=== PATIENT | female | born 1975 | race Caucasian/White ===

== ENCOUNTER 2018-05-27 13:48 | Emergency (ER) | payer BC ==
[~2018-05-27] VITALS: Ht 170.2 cm; Wt 95.3 kg
--- NOTE | 2018-05-27 15:35 | PHYS DOC ---
Past Medical History Past Medical History: Asthma, Migraines Additional Past Medical Histor: ULCERATIVE COLITIS,PSORASIS, Past Surgical History: No Surgical History Alcohol Use: None Drug Use: None Adult General Chief Complaint Chief Complaint: HEADACHE HPI HPI Patient is a 42 year old female who presents with headache and fever. Patient reports she has a history of migraine headaches. She reports she usually can control this with Excedrin and rest. She reports this headache started 2 days ago. She did go to urgent care today and received IM Toradol and IM Compazine. She went home and rested, but her symptoms have returned. She reports she started running fever last night. She reports her fever this morning was 101. She reports nausea without vomiting. She denies any visual disturbances. Review of Systems Review of Systems Constitutional: Reports fever Eyes: Denies change in visual acuity, redness, or eye pain [] HENT: Denies nasal congestion or sore throat [] Respiratory: Denies cough or shortness of breath [] Cardiovascular: No chest pain or palpitations GI: Denies abdominal pain, vomiting Musculoskeletal: Patient reports diffuse myalgias and arthralgias. Integument: Denies rash or skin lesions [] Neurologic: Reports fever. Denies focal weakness or sensory changes [] All other systems were reviewed and found to be within normal limits, except as documented in this note. Current Medications Current Medications Current Medications Medications (Trade) Dose Ordered Sig/Filippo Start Time Stop Time Status Last Admin Dose Admin Diphenhydramine HCl (Benadryl) 25 mg 1X ONCE 05/27/18 15:45 05/27/18 15:46 DC 05/27/18 15:53 25 MG Ketorolac Tromethamine (Toradol 30mg Vial) 15 mg 1X ONCE 05/27/18 15:45 05/27/18 15:46 DC 05/27/18 15:53 15 MG Methylprednisolone Sodium Succinate (SOLU-Medrol 125MG VIAL) 125 mg 1X ONCE 05/27/18 15:45 05/27/18 15:46 DC 05/27/18 15:53 125 MG Metoclopramide HCl (Reglan Vial) 10 mg 1X ONCE 05/27/18 15:45 05/27/18 15:46 DC 05/27/18 15:53 10 MG Sodium Chloride 1,000 ml @ 1,000 mls/hr 1X ONCE 05/27/18 16:00 05/27/18 16:59 DC 05/27/18 15:53 1,000 MLS/HR Allergies Allergies Allergies Coded Allergies Type Severity Reaction Last Updated Verified No Known Drug Allergies 05/27/18 No Physical Exam Physical Exam Constitutional: Well developed, well nourished, no acute distress, non-toxic appearance. [] HENT: Normocephalic, atraumatic, bilateral TMs normal, oropharynx moist, no oral exudates, nose normal. [] Eyes: PERRLA, EOMI, conjunctiva normal, no discharge. [] Neck: Limited range of motion, tenderness present Cardiovascular:Heart rate regular rhythm, no murmur [] Lungs & Thorax: Bilateral breath sounds clear to auscultation [] Abdomen: Bowel sounds normal, soft, no tenderness Skin: Warm, dry, no erythema, no rash. [] Back: No tenderness, no CVA tenderness. [] Extremities: No tenderness, ROM intact, no edema. [] Neurologic: Alert and oriented X 3, normal motor function, normal sensory function, no focal deficits noted. [] Psychologic: Affect normal, judgement normal, mood normal. [] Current Patient Data Vital Signs Vital Signs Date Time Temp Pulse Resp B/P (MAP) Pulse Ox O2 Delivery O2 Flow Rate FiO2 05/27/18 15:05 99.1 99 18 152/100 (117) 94 Room Air 99.1 Lab Values Laboratory Tests Test 05/27/18 15:20 05/27/18 16:00 White Blood Count 10.0 x10^3/uL (4.0-11.0) Red Blood Count 4.65 x10^6/uL (3.50-5.40) Hemoglobin 15.0 g/dL (12.0-15.5) Hematocrit 42.5 % (36.0-47.0) Mean Corpuscular Volume 91 fL (79-100) Mean Corpuscular Hemoglobin 32 pg (25-35) Mean Corpuscular Hemoglobin Concent 35 g/dL (31-37) Red Cell Distribution Width 13.5 % (11.5-14.5) Platelet Count 192 x10^3/uL (140-400) Neutrophils (%) (Auto) 61 % (31-73) Lymphocytes (%) (Auto) 25 % (24-48) Monocytes (%) (Auto) 10 % (0-9) H Eosinophils (%) (Auto) 4 % (0-3) H Basophils (%) (Auto) 1 % (0-3) Neutrophils # (Auto) 6.2 x10^3uL (1.8-7.7) Lymphocytes # (Auto) 2.5 x10^3/uL (1.0-4.8) Monocytes # (Auto) 1.0 x10^3/uL (0.0-1.1) Eosinophils # (Auto) 0.3 x10^3/uL (0.0-0.7) Basophils # (Auto) 0.1 x10^3/uL (0.0-0.2) Sodium Level 140 mmol/L (136-145) Potassium Level 3.8 mmol/L (3.5-5.1) Chloride Level 103 mmol/L (98-107) Carbon Dioxide Level 29 mmol/L (21-32) Anion Gap 8 (6-14) Blood Urea Nitrogen 19 mg/dL (7-20) Creatinine 0.8 mg/dL (0.6-1.0) Estimated GFR (Cockcroft-Gault) 77.9 BUN/Creatinine Ratio 24 (6-20) H Glucose Level 104 mg/dL (70-99) H Calcium Level 9.2 mg/dL (8.5-10.1) Total Bilirubin 0.5 mg/dL (0.2-1.0) Aspartate Amino Transferase (AST) 13 U/L (15-37) L Alanine Aminotransferase (ALT) 24 U/L (14-59) Alkaline Phosphatase 63 U/L (46-116) C-Reactive Protein, Quantitative 3.7 mg/L (0-3.3) H Total Protein 7.4 g/dL (6.4-8.2) Albumin 4.0 g/dL (3.4-5.0) Albumin/Globulin Ratio 1.2 (1.0-1.7) Influenza Type A Antigen Negative (NEGATIVE) Influenza Type B Antigen Negative (NEGATIVE) Laboratory Tests 05/27/18 15:20 Laboratory Tests 05/27/18 15:20 EKG EKG [] Radiology/Procedures Radiology/Procedures [PROCEDURE: CT HEAD WO CONTRAST EXAM: Head CT without contrast. HISTORY: Fever. TECHNIQUE: Computed tomographic images of the head were obtained without contrast. *One or more of the following individualized dose reduction techniques were utilized for this examination: 1. Automated exposure control. 2. Adjustment of the mA and/or kV according to patient size. 3. Use of iterative reconstruction technique. COMPARISON: None. FINDINGS: There is no acute or subacute extra-axial or intraparenchymal hemorrhage. There is no mass effect or midline shift. There is no hydrocephalus. The turner-white matter differentiation pattern is intact. There is moderate bilateral ethmoid and mild bilateral maxillary sinus mucosal thickening with mucous retention cysts. The mastoid air cells are clear. IMPRESSION: 1. No acute intracranial finding. 2. Paranasal sinus disease.] Course & Med Decision Making Course & Med Decision Making Pertinent Labs and Imaging studies reviewed. (See chart for details) Patient is feeling better at this time. Dr. Quevedo evaluated patient, discussed risks versus benefits of lumbar puncture, and agrees with plan of care. Plan: Home to rest, follow-up with PCP, return precautions reviewed [ER PHYSICIAN ATTENDING NOTE: Patient presents complaining of a headache. She states she has had daily headaches for years, but on Friday began having a gradually worsening headache, along with some viral symptoms. She has had myalgias diffusely. She received migraine treatment at an urgent care center today and was sent to the emergency department for further evaluation. She has not had any vision changes but has had some photophobia. At the time that I evaluated the patient she was given additional medication in the emergency department and is feeling significantly better at this time. She has no focal neurological deficits. She does not have any meningismus but does have some discomfort with movement of her neck but states she has chronic neck issues. I discussed doing a lumbar puncture with the patient. We discussed the limitations of CT in definitively ruling out subarachnoid hemorrhage, or ruling out meningitis, I discussed the potential life-threatening nature of these diagnoses. The patient expressed verbal understanding of the risks involved in potentially missing these diagnoses. After considering the risks/benefits of lumbar puncture, and answering all questions about the procedure, the patient declined to undergo a lumbar puncture. The patient was mentally competent, and coherent, and expressed understanding of the discussion, and all questions were addressed. I stressed the need to return to the emergency department for worsening symptoms, or if the patient is willing to undergo further evaluation. The patient expressed verbal understanding. I have personally seen and examined the patient, and agree with the history, physical exam, and plan, as documented by mid-level provider. -Wolf Quevedo MD Dragkristin Disclaimer Dragon Disclaimer This electronic medical record was generated, in whole or in part, using a voice recognition dictation system. Departure Departure Impression: Primary Impression: Headache Disposition: 01 HOME, SELF-CARE Condition: IMPROVED Referrals: ABDIAS ROBERT MD Patient Instructions: Headache, FAQs, Migraine Headache, [id number] Problem Qualifiers Primary Impression: Headache Headache type: unspecified Headache chronicity pattern: acute headache Intractability: not intractable Qualified Codes: R51 - Headache MOY DELCID APRN May 27, 2018 15:35 WOLF QUEVEDO MD May 27, 2018 17:42
[2018-05-27 15:36] LABS: BASO # 0.1 x10^3/uL (0.0-0.2); BASO % 1 % (0-3); EOS # 0.3 x10^3/uL (0.0-0.7); EOS % 4 % (0-3); HEMATOCRIT 42.5 % (36.0-47.0); LYMPH # 2.5 x10^3/uL (1.0-4.8); LYMPH % 25 % (24-48); MEAN CORPUSCULAR HEMOGLOBIN 32 pg (25-35); MEAN CORPUSCULAR HGB CONC 35 g/dL (31-37); MEAN CORPUSCULAR VOLUME 91 fL (79-100); MONO % 10 % (0-9); NEUT # 6.2 x10^3uL (1.8-7.7); NEUT % 61 % (31-73); PLATELET COUNT 192 x10^3/uL (140-400); RED BLOOD COUNT 4.65 x10^6/uL (3.50-5.40); RED CELL DISTRIBUTION WIDTH 13.5 % (11.5-14.5)
[2018-05-27] MEDS ORDERED: METOCLOPRAMIDE HCL 10 MG/2 ML VIAL. IV ONE (15:45)
[2018-05-27] MEDS ORDERED: diphenhydrAMINE HCL 25 MG CAPSULE PO ONE (15:45)
[2018-05-27] MEDS ORDERED: KETOROLAC 30 MG/ML VIAL. IV ONE (15:45)
[2018-05-27] MEDS ORDERED: methylPREDNISolone SOD SUCC PF 125 MG/2 ML VIAL. IV ONE (15:45)
[2018-05-27] MEDS ORDERED: IV NORMAL SALINE 1000ML BAG 1,000 ML IV ONE (16:00)
[2018-05-27 16:01] LABS: CALCIUM 9.2 mg/dL (8.5-10.1); CREATININE 0.8 mg/dL (0.6-1.0); GFR 77.9; POTASSIUM 3.8 mmol/L (3.5-5.1)
[2018-05-27 16:07] LABS: ALBUMIN/GLOBULIN RATIO 1.2 (1.0-1.7); C-REACTIVE PROTEIN 3.7 mg/L (0-3.3); TOTAL BILIRUBIN 0.5 mg/dL (0.2-1.0); TOTAL PROTEIN 7.4 g/dL (6.4-8.2)
--- NOTE | 2018-05-27 16:20 | RAD ---
EXAM: Head CT without contrast. HISTORY: Fever. TECHNIQUE: Computed tomographic images of the head were obtained without contrast. *One or more of the following individualized dose reduction techniques were utilized for this examination: 1. Automated exposure control. 2. Adjustment of the mA and/or kV according to patient size. 3. Use of iterative reconstruction technique. COMPARISON: None. FINDINGS: There is no acute or subacute extra-axial or intraparenchymal hemorrhage. There is no mass effect or midline shift. There is no hydrocephalus. The turner-white matter differentiation pattern is intact. There is moderate bilateral ethmoid and mild bilateral maxillary sinus mucosal thickening with mucous retention cysts. The mastoid air cells are clear. IMPRESSION: 1. No acute intracranial finding. 2. Paranasal sinus disease. Electronically signed by: Paula Mansfield MD (05/27/2018 4:17 PM) [id number]
[2018-05-27 16:34] LABS: INFLUENZA A PATIENT NEGATIVE (NEGATIVE); INFLUENZA B PATIENT NEGATIVE (NEGATIVE)
[2018-05-27 17:50] VITALS: BP 106/54
== END 2018-05-27 18:07 | disposition home or self-care (01) ==
LOC: ER 13:48
DX: G43.909 Migraine, unspecified, not intractable, without status migrainosus (principal); R50.9 Fever, unspecified; J45.909 Unspecified asthma, uncomplicated
CPT/HCPCS: 36415; 70450; 80053; 85025; 86140; 87804; 96374; 96375; 99284; J1885; J2765; J2930; J7030; Q0163